=== PATIENT | female | born 1935 | race Caucasian/White ===

== ENCOUNTER 2018-08-13 19:55 | Emergency (ER) | payer MEDICARE ==
[~2018-08-13] VITALS: Ht 172.7 cm; Wt 108.9 kg
[~2018-08-13 19:55] MED LIST: ASPIR 8181 MG PO; ATORVASTATIN CA10 MG PO; CALCIUM CARBON500 MG PO; CALCIUM500 M1; DETROL LA2 MG; METHIMAZOLE5 MG; PANTOPRAZOLE SO40 MG PO; PRAVASTATIN SOD40 MG PO; PROBIOTIC & AC1 EACH; PROBIOTIC COMP1 EACH PO; REQUIP0.5 MG PO; SERTRALINE HCL100 MG PO; SPIRONOLACTONE100 MG PO; SPIRONOLACTONE50 MG; TROSPIUM PO; VITAMIN D1000 UNI1 PO
--- NOTE | 2018-08-13 21:04 | Diagnostic Imaging Report ---
Exam: Right forearm and humerus AP and lateral view Indication: Fell injured parking lot, right wrist and right shoulder pain Comparison: None next Findings: The bones are demineralized. Acute nondisplaced proximal radial neck fracture. Soft tissue swelling posterior elbow. Impression: Acute nondisplaced proximal right radial neck fracture. No right humerus fracture. Signed by: Dr. Glo Andrews M.D. on 08/13/2018 9:00 PM
== END 2018-08-13 21:06 | disposition home or self-care (01) ==
LOC: FSED 19:55
DX: S50.01XA Contusion of right elbow, initial encounter (principal); S40.021A Contusion of right upper arm, initial encounter; S50.11XA Contusion of right forearm, initial encounter; S50.311A Abrasion of right elbow, initial encounter; S50.811A Abrasion of right forearm, initial encounter; W01.0XXA Fall on same level from slipping, tripping and stumbling without subsequent striking against object, initial encounter; Y93.01 Activity, walking, marching and hiking; Y92.488 Other paved roadways as the place of occurrence of the external cause
CPT/HCPCS: 99283

== ENCOUNTER 2020-10-06 16:49 | Emergency (ER) | payer MEDICARE ==
[~2020-10-06] VITALS: Ht 172.7 cm; Wt 108.9 kg
[2020-10-06 19:08] LABS: BASOPHILS % 0.5 % (0.0-1.0); EOSINOPHILS # (AUTO) 0.1 (0.0-0.4); EOSINOPHILS % 1.2 % (0.0-6.0); HEMATOCRIT 38.1 % (34.2-44.1); HEMOGLOBIN 11.9 g/dL (12.0-16.0); LYMPHOCYTES # (AUTO) 1.5 (1.0-3.2); LYMPHOCYTES % 25.8 % (18.0-39.1); MEAN CORPUSCULAR HEMOGLOBIN 26.2 pg (28-32); MEAN CORPUSCULAR HGB CONC 31.2 g/dL (31-35); MEAN CORPUSCULAR VOLUME 83.7 fL (81-99); MONOCYTES # (AUTO) 0.5 (0.2-0.8); MONOCYTES % 7.9 % (4.4-11.3); NEUTROPHILS # (AUTO) 3.7 (2.1-6.9); NEUTROPHILS % 64.3 % (38.7-80.0); PLATELET COUNT 137 x10e3/uL (140-360); RED BLOOD COUNT 4.55 x10e6/uL (3.6-5.1); RED CELL DISTRIBUTION WIDTH 14.2 % (11.7-14.4)
[2020-10-06 19:13] LABS: INR 0.89; PROTHROMBIN TIME 12.5 seconds (11.9-14.5)
[2020-10-06 19:14] LABS: PARTIAL THROMBOPLASTIN TIME 26.8 seconds (23.8-35.5)
[2020-10-06 19:25] LABS: ALBUMIN 3.7 g/dL (3.5-5.0); ALBUMIN/GLOBULIN RATIO 1.2 (0.8-2.0); ANION GAP 13.9 mmol/L (8-16); CALCIUM 9.2 mg/dL (8.4-10.2); CREATININE, SERUM 0.9 mg/dL (0.57-1.11); POTASSIUM 3.9 mmol/L (3.5-5.1)
[2020-10-06 19:33] LABS: CREATINE KINASE MB 2.8 ng/mL (0-5.0)
[2020-10-06 21:27] LABS: CREATINE KINASE 152 IU/L (29-168)
== END 2020-10-06 23:25 | disposition home or self-care (01) ==
LOC: ER 17:20
DX: R06.00 Dyspnea, unspecified (principal); I10 Essential (primary) hypertension; E78.5 Hyperlipidemia, unspecified; F32.9 Major depressive disorder, single episode, unspecified; Z79.82 Long term (current) use of aspirin
CPT/HCPCS: 36415; 71045; 80053; 82550; 82553; 83880; 84484; 85025; 85610; 85730; 93005; 99284; U0002

== ENCOUNTER 2021-09-25 00:42 | Emergency (ER) | payer MEDICARE ==
[~2021-09-25] VITALS: Ht 172.7 cm; Wt 108.9 kg
[2021-09-25] MEDS ORDERED: HYDROCODONE/APAP 7.5MG-325MG 1 EA TAB PO STA (01:34)
[2021-09-25] MEDS ORDERED: MORPHINE SULFAT15 MG PO (02:46)
== END 2021-09-25 02:32 | disposition home or self-care (01) ==
LOC: ER 00:49
DX: S52.501A Unspecified fracture of the lower end of right radius, initial encounter for closed fracture (principal); M25.551 Pain in right hip; W06.XXXA Fall from bed, initial encounter; Y93.84 Activity, sleeping; Y92.003 Bedroom of unspecified non-institutional (private) residence as the place of occurrence of the external cause; I10 Essential (primary) hypertension; E78.5 Hyperlipidemia, unspecified; F32.A Depression, unspecified; Z96.653 Presence of artificial knee joint, bilateral; Z98.84 Bariatric surgery status
CPT/HCPCS: 70450; 72125; 99283

== ENCOUNTER 2022-04-19 08:45 | Outpatient (RCR) | payer MEDICARE ==
[~2022-04-19 08:45] MED LIST changes: +MORPHINE SULFAT15 MG PO
== END 2022-05-09 ==
LOC: PT 08:45
PROVIDERS: ATTEND Internal Medicine
DX: R42 Dizziness and giddiness (principal)